=== PATIENT | female | born 1960 | race Two or more races ===

== ENCOUNTER 2023-06-28 06:34 | Emergency (ER) | payer OTHER ==
[~2023-06-28] VITALS: Ht 154.9 cm; Wt 64.9 kg
[2023-06-28 08:43] LABS: HEMATOCRIT 42.7 % (36.0-45.00); HEMOGLOBIN 14.6 g/dL (12.0-15.00); MEAN CELL VOLUME 87.3 fL (80.00-100.00); MEAN CORPUSCULAR HEMOGLOBIN 29.9 pg (27.00-32.0); MEAN CORPUSCULAR HGB CONC 34.3 g/dl (32.0-36.0); PLATELET COUNT 174 K/uL (150-450); RED BLOOD COUNT 4.89 M/uL (4.00-6.00); RED CELL DISTRIBUTION WIDTH 14.9 % (11.5-14.5)
[2023-06-28 09:36] LABS: ALBUMIN 3.9 gm/dL (3.4-5.0); BILIRUBIN TOTAL 0.46 mg/dL (0.3-1.2); CALCIUM 8.7 mg/dL (8.5-10.1); CREATININE SERUM 0.83 mg/dL (0.55-1.02); GFR 69.43; GLOBULINA 3.3 G/DL (2.4-3.5); TOTAL PROTEIN 7.2 gm/dL (6.4-8.2)
[2023-06-28 11:45] LABS: URINE APPEARANCE Clear; URINE BILIRRUBIN Negative (NEGATIVE); URINE BLOOD Negative; URINE COLOR Yellow; URINE GLUCOSE Negative (NEGATIVE); URINE LEUKOCYTE Small; URINE NITRATE Negative; URINE PROTEIN Negative (NEGATIVE)
[2023-06-28 11:46] LABS: URINE BACTERIA 1045.6 uL (0.0-1933); URINE EPITHELIAL CELLS 33.2 uL (0.0-38.8); URINE RBC 5.6 uL (0.0-20.8)
== END 2023-06-28 14:06 | disposition home or self-care (01) ==
LOC: ER 06:34
PROVIDERS: General Practice
DX: U07.1 COVID-19 (principal); K52.9 Noninfective gastroenteritis and colitis, unspecified; B34.8 Other viral infections of unspecified site; E86.0 Dehydration